=== PATIENT | male | born 1955 | race Caucasian/White ===

== ENCOUNTER → 2022-11-12 | Outpatient (CLI) | payer OTHER, MEDICARE ==
--- NOTE | 2022-11-12 12:02 | Diagnostic Imaging Report ---
INDICATION: Left knee pain 3 views of left knee shows no fracture or dislocation. There is no pathologic effusion. There is minimal narrowing of the medial joint space. IMPRESSION: Minimal degenerative changes medial compartment left knee. Dictated by: Dictated on workstation # [id number]
== END ==
LOC: RAD FS 10:57
PROVIDERS: ATTEND Nurse Practitioner
DX: M25.562 Pain in left knee (principal)
CPT/HCPCS: 73562